=== PATIENT | female | born 1940 | race Caucasian/White ===

== ENCOUNTER 2025-02-25 14:35 | Emergency (ER) | payer OTHER, SELFPAY ==
--- OUTSIDE RECORDS SUMMARY | 2025-02-16 14:30 | XMS_ITS | Encounter Summary ---
Author Organization [facility] Address [address] [place] [address] Care Team Providers Care Assembler Faucets Name Role Phone Jose Roberto Torres MD Unavailable Rober Schmidt MD Primary Care Provider [phone] Reason for Visit * Imaging (Routine) - Closed Specialty Diagnoses / Procedures Referred By Contac t Referred To Contact Radiology Diagnoses Cigarette smoker Shortness of breath Screening for lung cancer Procedures CT lung screening low dose Rober Schmidt MD 112 [facility] [address] [place] [address] Phone: tel: fax: [facility] [address] [place] [address] Phone: tel: fax: Referral ID Status Reason Start Date Expiration Date Visits Re quested Visits Authorized [id number] Closed 02/11/2025 08/10/2025 1 1 Encounter Details Date Type Department Care Team ([facility] Contact Info) Description 02/16/2025 2:30 PM EDT Ancillary Procedure [facility] [address] [place] [address] Social History Tobacco Use Types Packs/Day Years Used Date Smoking Tobacco: Every Day Cigarettes Smokeless Tobacco: Never Alcohol Use Standard Drinks/Week Comments Not Currently 0 (1 standard drink = 0.6 oz pur e alcohol) PHQ-2 Answer Date Recorded Patient Health Questionnaire-2 Score 1 02/09/2025 Comments No Sex and Gender Information Value Date Recorded Sex Assigned at Not on file Legal Sex Female 7:26 PM EDT Gender Identity Not on file Sexual Orientation Not on file documented as of this encounter Plan of Treatment Not on file documented as of this encounter Procedures Procedure Name Priority Date/Time Associated Diagnosis Comments CT LUNG SCREENING LOW DOSE Routine 02/16/2025 2:46 PM EDT Cigarette smoker Shortness of breath Screening for lung cancer documented in this encounter Results * CT lung screening low dose (02/16/2025 2:46 PM EDT) Anatomical Region Laterality Modality Lung Computed Tomogra phy 02/16/2025 2:49 PM EDT Impressions 02/16/2025 2:58 PM EDT Lung Rads: LUNGRADS 1 - Negative Follow-up Recommendation: LDCT 1 Year Lung Rads categories: Category 0: Incomplete Additional Imaging Categories 1 & 2: Negative/Benign Continue annual screening Category 3: Probable benign 6 month f/u CT Chest wo Category 3s: Clinically significant or potentially clinically significant findings Category 4A/B Suspicious 4A: [address] Chest wo; PET/CT when > 8mm solid nodule component exists 4B: Chest w/ contrast; PET/CT and/or biopsy Category 5: Highly suspicious for Nodules with strong evidence of malignancy, requiring malignancy. immediate biopsy. Category 6: Incomplete Insufficient Information All CT scans at this facility use dose modulation, iterative reconstruction, and/or weight based dosing when appropriate to reduce radiation dose to as low as reasonably achievable. TRANSCRIBED BY: ELECTRONICALLY SIGNED BY: Freddie Harley MD Narrative 02/16/2025 2:[address]OW DOSE [address] IMAGING OF THE CHEST WITHOUT INTRAVENOUS CONTRAST MEDIUM. HISTORY: Tobacco use. TECHNICAL FACTORS: Without IV contrast axial helical 1.25mm slice thickness low dose images of the chest performed for lung cancer screening. FINDINGS: No suspicious lung nodule, mass, or parenchymal consolidation. Moderate sized sliding hiatal hernia. No significant hilar or mediastinal lymphadenopathy. No pleural or pericardial effusion. Procedure Note Freddie Harley MD - 02/16/[address] IMAGING OF THE CHEST WITHOUT INTRAVENOUS CONTRAST MEDIUM. HISTORY: Tobacco use. TECHNICAL FACTORS: Without IV contrast axial helical 1.25mm slice thickness low dose imagesof the chest performed for lung cancer screening. FINDINGS: No suspicious lung nodule, mass, or parenchymal consolidation. Moderatesized sliding hiatal hernia. No significant hilar or mediastinallymphadenopathy. No pleural or pericardial effusion. IMPRESSION: Lung Rads: LUNGRADS 1 - Negative Follow-up Recommendation: LDCT 1 Year Lung Rads categories: Category 0: Incomplete Additional Imaging Categories 1 & 2: Negative/Benign Continue annual screening Category 3: Probable benign 6 month f/u CT Chest wo Category 3s: Clinicallysignificant or potentially clinically significant findings Category 4A/B Suspicious 4A: [address] Chest wo;PET/CT when > 8mm solid nodulecomponent exists 4B: Chestw/ contrast; PET/CT and/or biopsy Category 5: Highly suspicious for Nodules with strong evidenceof malignancy, requiring malignancy. immediatebiopsy. Category 6: Incomplete Insufficient Information All CT scans at this facility use dose modulation, iterativereconstruction, and/or weight based dosing when appropriate to reduceradiation dose to as low as reasonably achievable. TRANSCRIBED BY: ELECTRONICALLY SIGNED BY: Freddie Harley MD us Rober Schmidt MD IMG CT PROCEDURES Final Resu lt documented in this encounter Visit Diagnoses Not on filedocumented in this encounter Care Teams Assembler Faucets Relationship Specialty Start Date End Date Jose Roberto Torres MD [address] [place] [address] PCP - Devoted 09/09/21 Rober Schmidt MD [address] [place] [address] PCP - General Family Medicine 10/27/24 documented as of this encounter
[2025-02-25] VITALS (46 sets, daily range): BP systolic 110–162; BP diastolic 45–85; PULSE 73–104; TEMP 36.4–36.9; O2SAT 57–100; BMI 30.9
--- NOTE | 2025-02-25 14:46 | ECG_ITS ---
[facility] Test Date: 2025-02-25 Pat Name: KATARINA SHORT Department: Room: - Gender: Female [employer]: : 1940 Requested By: [id number] Order Number: [id number] [place] MD: RYAN ARTHUR M.D. Measurements Intervals [place] Rate: 85 P: -53695 MT: 172 QRS: -50928 QRSD: 82 T: -60359 QT: 379 QTc: 379 Interpretive Statements Normal sinus rhythm Low voltage ECG Artifact Abnormal ECG No previous ECG available for comparison Electronically Signed On 02-25-2025 18:06:21 EDT by RYAN ARTHUR M.D.
--- NOTE | 2025-02-25 14:46 | XR_ITS ---
The [address] [address] Patient Name: KATARINA SHORT MRN: [id number] date: 1940 Sex: F Assigned Patient Location: ED.MAIN Current Patient Location: ED.MAIN Accession/Order Number: [id number] Exam Date: 02/25/2025 15:10 Report Date: 02/25/2025 15:12 At the request of: SAI PAEZ MD Procedure: XR chest 1V Plain film chest Single view HISTORY: Shortness of breath COMPARISON: 06/05/2021 FINDINGS: SUPPORT DEVICES: None POSTSURGICAL CHANGES: None HEART: Similar borderline cardiomegaly PULMONARY ALESIA: Similar hilar vascular prominence MEDIASTINUM: Unremarkable LUNGS AND PLEURA: No acute lung process, pleural effusion or pneumothorax identified. Minor interstitial changes BONY STRUCTURES: Chronic shoulder findings. ADDITIONAL FINDINGS None XR/XR chest 1V IMPRESSION: Similar mild CHF findings Impression dictated by: Alonso Negron M.D. 02/25/2025 3:12 PM Dictation Location: [place] [address] Electronically authenticated by: [id number] Y Date: 02/25/2025 15:12
--- OUTSIDE RECORDS SUMMARY | 2025-02-25 14:47 | XMS_ITS | Encounter Summary ---
Author Organization [facility] Address [address] [place] [address] Care Team Providers Care Smocker Name Role Phone Jose Roberto Torres MD Unavailable Rober Schmidt MD Primary Care Provider [phone] Encounter Details Date Type Department Care Team (Latest Contact Info) Description 02/16/2025 Travel Social History Tobacco Use Types Packs/Day Years [...] on file documented as of this encounter Visit Diagnoses Not on filedocumented in this encounter Care Teams Smocker Relationship Specialty Start Date End Date Jose Roberto Torres MD [address] [place] [address] PCP - Devoted 09/09/21 Rober Schmidt MD [address] [address] PCP - General Family Medicine 10/27/24 documented as of this encounter
--- OUTSIDE RECORDS SUMMARY | 2025-02-25 14:47 | XMS_ITS | Clinical Summary ---
Author Organization [facility] Address [address] [place] [address] Care Team Providers Care Dust Collector Attendant Name Role Phone Jose Roberto Torres MD Unavailable Rober Schmidt MD Primary Care Provider + [phone] Allergies Active Allergy Reactions Criticality Noted Date Comments Penicillin G Benzathine GI intolerance,Fever Medications Doxylamine Succinate, Sleep, (UNISOM PO) Take 1 tablet by mouth if needed (sleep aid) Active ibuprofen 200 MG tablet Take 600 mg by mouth 2 (two) times a day as needed for mild pain Active spironolactone (Aldactone) 50 MG tabletIndications: Venous insufficiency Take 1 tablet (50 mg) by mouth Daily 90 tablet 5 03/10/20 25 Active bumetanide (Bumex) 0.5 MG tabletIndications: Venous insufficiency,Ankl e edema, bilateral Take 1 tablet (0.5 mg) by mouth Daily 90 tablet 5 05/12/20 25 Active Active Problems Problem Noted Date Diagnosed Date Pulmonary fibrosis 02/11/2025 Venous insufficiency 02/11/2025 Simple chronic bronchitis 10/02/2024 Chronic insomnia 10/02/2024 Dermatochalasis of both upper eyelids 09/17/2024 Primary open angle glaucoma (POAG) of both eyes 09/17/2024 Pseudophakia 09/17/2024 Vitreous floaters 09/17/2024 Hx of hysterectomy 09/17/2024 Cigarette smoker 09/17/2024 Encounters Date Type Department Care Team Description 02/16/2025 2:30 PM EDT Ancillary Procedure [facility] [address] [place] [address] 02/16/2025 Travel 02/11/2025 Orders Only [facility] [address] [facility] [address] [place] [address] [facility] [place] Cigarette smoker; Shortness of breath; Screening for lung cancer 02/11/2025 Results Follow-Up [facility] [address] [address] Rober Schmidt MD Cigarette smoker; Shortness of breath; Venous insufficiency; Ankle edema, bilateral; Pulmonary fibrosis (HCC); Screening for lung cancer 02/09/2025 3:00 PM EDT Office Visit [facility] [address] [address] Rober Schmidt MD Shortness of breath (Primary Dx); Cigarette smoker; Simple chronic bronchitis (HCC); Pulmonary fibrosis (HCC) 02/09/2025 12:30 PM EDT Ancillary Procedure [facility] RADIOLOGY [address] [place] [address] Shortness of breath; Cigarette smoker 02/09/2025 Bamboo flowsheet [facility] [address] [place] [address] Rober Schmidt MD 02/09/2025 Travel 12/10/2024 Telephone [facility] [address] [address] [facility] [place] Care Coordination 12/02/2024 Telephone [facility] [address] [address] Rober Schmidt MD Results from Last 3 Months Immunizations Immunization Administration Dates Next Due Influenza, High-dose Seasona l, Quadrivalent, Preservative Free 06/26/2021 Influenza, recombinant, quad rivalent, injectable, preservative free 08/03/2022 Pfizer Tamayo Cap SARS-CoV-2 Vaccination Pfizer Purple Cap SARS-CoV-2 Vaccination 021,10/29/2020,10/03/2020 SARS-COV-2 (COVID-19) vaccin e, mRNA, spike protein, LNP, bivalent, preservative free, 30 mcg/0.3 mL dose, ranjeet-sucrose formulation 08/03/2022 Family History Relation Name Status Comments Father Mother Social History Tobacco Use Types Packs/Day Years Used Date Smoking Tobacco: Every Day Cigarettes Smokeless Tobacco: Never Tobacco Cessation:Ready to Q uit: No; Counseling Given: Yes Alcohol Use Standard Drinks/Week Comments Not Currently 0 (1 standard drink = 0.6 oz pur e alcohol) PHQ-2 Answer Date Recorded Patient Health Questionnaire-2 Score 1 02/09/2025 Comments No Sex and Gender Information Value Date Recorded Sex Assigned at Not on file Legal Sex Female 7:26 PM EDT Gender Identity Not on file Sexual Orientation Not on file Last Filed Vital Signs Vital Sign Reading Time Taken Comments Blood Pressure - - Pulse 106 02/09/2025 2:58 PM EDT Temperature - - Respiratory Rate - - Oxygen Saturation 93% 02/09/2025 2:58 PM EDT Inhaled Oxygen Concentration - - Weight 85.3 kg (188 lb) 02/09/2025 2:58 PM EDT Height 162.6 cm (5' 4 ) 02/09/2025 2:58 PM EDT Body Mass Index 32.27 02/09/2025 2:58 PM EDT Plan of Treatment Health Maintenance Due Date Last Done Comments Influenza Vaccine (Season Ended) 2025 08/03/2022, 06/26/2021 Medicare Annual Wellness (AWV) 09/21/2025 09/21/2024 Pneumococcal Vaccine: 65+ Years (1 of 2 - PCV) 09/21/2025 Postponed from 03/1959 (Patient Refused) Procedures Procedure Name Priority Date/Time Associated Diagnosis Comments CT LUNG SCREENING LOW DOSE Routine 02/16/2025 2:46 PM EDT Cigarette smoker Shortness of breath Screening for lung cancer XR CHEST 2 VIEWS Routine 02/09/2025 4:12 PM EDT Shortness of breath Cigarette smoker BASIC METABOLIC PANEL Routine 12/01/2024 1:18 PM EDT CKD stage 3a, GFR 45-59 ml/min ([facility]) from Last 3 Months Results * CT lung screening low dose [...] MD IMG CT PROCEDURES Final Resu lt * XR chest 2 views (02/09/2025 4:12 PM EDT) Anatomical Region Laterality Modality Chest Radiographic Denise ging 02/10/2025 2:09 PM EDT Narrative 02/10/2025 2:09 PM EDT EXAM: XR CHEST 2 VIEWS Clinical History: Shorness of breath for a few months Reference Exam: No comparison Findings: Atherosclerosis of the aortic arch. The cardiopericardial silhouette is normal in appearance. The pulmonary vessels are not cephalized. There is no alveolar edema, pneumonia, or pneumothorax. Prominent reticular interstitial lung markings in the perihilar lungs. Negative for pleural effusion. The skeleton is remarkable for multilevel degenerative changes. Background osteopenia Impression: 1. Vascular atherosclerosis. 2. Prominent reticular interstitial lung markings, nonspecific. Probable pulmonic fibrosis but interstitial pneumonitis not completely excluded. Dictated on: 02/10/2025 11:58 AM This report has been electronically signed and approved by the interpreting Radiologist. Procedure Note Tray Tafoya MD - 02/10/2025 EXAM: XR CHEST 2 VIEWS Clinical History: Shorness of breath for a few months Reference Exam: No comparison Findings: Atherosclerosis of the aortic arch. The cardiopericardial silhouette is normal in appearance. The pulmonaryvessels are not cephalized. There is no alveolar edema, pneumonia, orpneumothorax. Prominent reticular interstitial lung markings in theperihilar lungs. Negative for pleural effusion. The skeleton is remarkablefor multilevel degenerative changes. Background osteopenia Impression: 1. Vascular atherosclerosis. 2. Prominent reticular interstitial lung markings, nonspecific. Probablepulmonic fibrosis but interstitial pneumonitis not completely excluded. Dictated on: 02/10/2025 11:58 AM This report has been electronically signed and approved by theinterpreting Radiologist. Rober Schmidt MD IMG XR PROCEDURES Final Resu lt * (ABNORMAL) Basic metabolic panel (12/01/2024 1:18 PM EDT) Glucose 90 65 - 99 mg/dL [facility] Comment: Fasting reference interval BUN 19 7 - 25 mg/dL [facility] Creatinine 1.10(H) 0.60 - 0.95 mg/dL [facility] EGFR 50(L) > OR = 60 mL/min/1.7 3m2 [facility] BUN/CREATININE RATIO 17 6 - 22 (calc) [facility] Sodium 141 135 - 146 mmol/L [facility] Potassium, Bld 4.4 3.5 - 5.3 mmol/L [facility] Chloride 106 98 - 110 mmol/L [facility] Carbon Dioxide 24 20 - 32 mmol/L [facility] Calcium 9.2 8.6 - 10.4 mg/dL [facility] Blood Venous blood specimen / Unknown 12/01/2024 1:18 PM EDT 12/01/2024 1:18 PM EDT Narrative Resulting Agency Comment Performing Organization Information Site ID: [id number] Name: [facility] [employer] [facility] Address: [address] [place] [address], [address] [place] [id number] Director: Abdulkadir Franco MD Rober Schmidt MD LAB BLOOD ORDERABLES Final R esult [facility] from Last 3 Months Insurance [facility] Advance Directives Documents on File Type Date Recorded Patient Piping Supervisor Expl anation Power of Media Promoter 10/20/2024 9:53 AM 01-03 Power Of Media Promoter Advance Directives and Living Will 10/20/2024 9:50 AM 2006-12-14 Living Wi Care Teams Dust Collector Attendant Relationship Specialty Start Date End Date Jose Roberto Torres MD [address] [place] [address] PCP - Devoted 09/09/21 Rober Schmidt MD 112 [facility] [address] [place] [address] PCP - General Family Medicine 10/27/24
--- OUTSIDE RECORDS SUMMARY | 2025-02-25 14:47 | XMS_ITS | Encounter Summary ---
Author Organization [facility] Address [address] [place] [address] Care Team Providers Care Diet Assistant Name Role Phone Jose Roberto Torres MD Unavailable Rober Schmidt MD Primary Care Provider [phone] Encounter Details Date Type Department Care Team (Late st Contact Info) Description 02/11/2025 Orders Only [facility] [address] [place] [address] Claudia December, Cigarette smoker; Shortness of breath; Screening for lung cancer Social History Tobacco Use Types Packs/Day Years [...] BY: ELECTRONICALLY SIGNED BY: Freddie Harley MD Rober Schmidt MD IMG CT PROCEDURES Final Resu lt documented in this encounter Visit Diagnoses Diagnosis Cigarette smoker Tobacco use disorder Shortness of breath Screening for lung cancer documented in this encounter Care Teams Diet Assistant Relationship Specialty Start Date End Date Jose Roberto Torres MD [address] [place] [address] PCP - Devoted 09/09/21 Rober Schmidt MD 112 [facility] 100 [place] [address] PCP - General Family Medicine 10/27/24 documented as of this encounter
--- OUTSIDE RECORDS SUMMARY | 2025-02-25 14:47 | XMS_ITS | Encounter Summary ---
Author Organization [facility] Address [address] [place] [address] Care Team Providers Care Lastex Operator Name Role Phone Jose Roberto Torres MD Unavailable Rober Schmidt MD Primary Care Provider [phone] Reason for Referral * Imaging (Routine) - Closed Specialty Diagnoses / Procedures Referred By Contac t Referred To Contact Radiology Diagnoses Cigarette smoker Shortness of breath Screening for lung cancer Procedures CT lung screening low dose Rober Schmidt MD [address] [address] Phone: tel: fax: [facility] [address] [facility] [address] [place] [address] Phone: tel: fax: Referral ID Status Reason Start Date Expiration Date Visits Re quested Visits Authorized [id number] Closed 02/11/2025 08/10/2025 1 1 Encounter Details Date Type Department Care Team (Late st Contact Info) Description 02/11/2025 Results Follow-Up [facility] 100 112 [facility] [address] [place] [address] Rober Schmidt MD 112 [facility] [address] [place] [address] (Fax) Cigarette smoker; Shortness of breath; Venous insufficiency; Ankle edema, bilateral; Pulmonary fibrosis (HCC); Screening for lung cancer Social History Tobacco [...] on file documented as of this encounter Miscellaneous Notes * Telephone Encounter - Nancy Taylor MA - 02/11/2025 8:25 AM EDT Swapna was notified and verbalized understanding. She asked for the test to be sent and the medication as well. * Telephone Encounter - Nancy Taylor MA - 02/11/2025 8:18 AM EDT ----- Message from Rober Schmidt MD sent at 02/11/2025 7:41 AM EDT ----- * Telephone Encounter - Rober Schmidt MD - 02/11/2025 7:38 AM EDT Notify her that I have reviewed the x-ray report and the x-ray itself. I do agree with the radiologist there significant interstitial markings. This can be consistent with fibrosis of the lungs. There is no specific treatment for fibrosis other than supporting everything else. I would recommend Regular (not screening) No contrast CT scan lungs and a pulmonary function test for dyspnea and pulmonary fibrosis and smoking. Since this will take a couple of weeks in the meantime if she would like we could add a small dose of Bumex 0.5 mg in the morning along with her spironolactone to help her with the swelling documented in this encounter Plan of Treatment Scheduled Orders Name Type Priority Associated Diagnoses Orde r Schedule Pulmonary Function Test Imaging Routine Cigarette smoker Shortness of breath Pulmonary fibrosis (HCC) Ordered: 02/11/2025 documented as of this encounter Results * CT lung screening [...] smoker Tobacco use disorder Shortness of breath Venous insufficiency Unspecified venous (peripheral) insufficiency Ankle edema, bilateral Pulmonary fibrosis (HCC) Postinflammatory pulmonary fibrosis Screening for lung cancer documented in this encounter Care Teams Lastex Operator Relationship Specialty Start Date End Date Jose Roberto Torres MD [address] [place] [address] PCP - Devoted 09/09/21 Rober Schmidt MD [address] [address] PCP - General Family Medicine 10/27/24 documented as of this encounter
[2025-02-25 14:58] LABS: Basophils Absolute Auto 0.1 10^3/uL (0.0-0.1); Basophils Percent Auto 0.8 % (0.2-2.0); Eosinophils Absolute Auto 0.2 10^3/uL (0.0-0.7); Eosinophils Percent Auto 1.8 % (0.9-7.0); Immature Granulocytes Abs Auto 0.08 10^3/uL (0.00-0.03); Immature Granulocytes Pct Auto 0.9 % (0.0-0.5); Lymphocytes Absolute Auto 1.9 10^3/uL (1.2-3.8); Lymphocytes Percent Auto 20.6 % (20.5-60.0); Mean Corpuscular HGB Conc 27.4 g/dL (29.9-35.2); Mean Corpuscular Hemoglobin 18.9 pg (26.7-34.0); Mean Corpuscular Volume 68.9 fL (81.0-99.0); Mean Platelet Volume 9.9 fL (9.5-13.5); Monocytes Absolute Auto 0.6 10^3/uL (0.3-0.8); Monocytes Percent Auto 6.9 % (1.7-12.0); Neutrophils Absolute Auto 6.4 10^3/uL (1.4-6.5); Platelet Count 312 10^3/uL (150-450); Red Blood Count 3.02 10^6/uL (4.20-5.40); White Blood Count 9.3 10^3/uL (4.0-11.0)
[2025-02-25 15:08] LABS: Hematocrit 20.8 % (36.0-48.0); Hemoglobin 5.7 g/dL (12.0-16.0)
[2025-02-25 15:14] LABS: INR 1.11; Prothrombin Time 11.6 sec (9.0-11.6)
[2025-02-25 15:16] LABS: Anion Gap 16.5
--- NOTE | 2025-02-25 15:17 | ED.SOB1 ---
HPI - SOB/Dyspnea General Chief Complaint: Shortness of Breath/Dyspnea Stated Complaint: SOB Time Seen by Provider: 02/25/25 14:46 Source: patient Mode of arrival: ambulance History of Present Illness HPI Narrative: The patient have a history of chronic bilateral leg edema as well as stage III kidney disease she recently was getting workup for possible lung fibrosis and she was started on inhalers. Patient admits of history of smoking but she does not have any history of COPD. The patient upon arrival was complaining of shortness of breath that got worse over the last 2 to 3 days although she have a baseline shortness of breath as well her bilateral leg edema did not get worse The patient denies any chest pain nausea vomiting or fever she also mentioned that she sometimes feels dizzy and short of breath on exertion The patient have no history of coronary artery disease and she had colonoscopy done more than 5 years ago when she had no acute pathology detected The patient has never been diagnosed any congestive heart failure although she was told that she was managed for A-fib before but she does not take any anticoagulant, the patient then had cardioversion as a treatment according to her history Related Data Home Medications ?Medication ?Instructions ?Recorded ?Confirmed bumetanide 0.5 mg tablet 1 mg PO DAILY 02/25/25 02/25/25 spironolactone 50 mg tablet 50 mg PO DAILY 02/25/25 02/25/25 Allergies Allergy/AdvReac Type Severity Reaction Status Date / Time Penicillins Allergy Severe sick Verified 02/25/25 14:44 Review of Systems ROS Status of ROS 10 or more systems reviewed and unremarkable except as noted in history and below Exam Narrative Exam Narrative: Nurses notes and vital signs reviewed and patient is not hypoxic. General: Pale looking and sick with no acute distress Skin: Warm, dry, no pallor noted. No rash. Head: Normocephalic, atraumatic. Neck: Supple, non-tender. Cardiovascular: Regular Rate and Rhythm without murmur, gallop or rub. Respiratory: Decreased air entry bilaterally with distant breathing sounds Back: No midline thoracic or lumbar vertebral tenderness. No CVA tenderness Musculoskeletal: Bilateral 2+ at least pitting edema until the level of the knee with no redness hotness or any signs of infection GI: Abdomen is soft, non-distended. Normal bowel sounds. No masses appreciated. No tenderness to palpation. No rebound, guarding, or rigidity noted. Neurological: A&O x4. No cranial nerve dysfunction observed. Constitutional Vital Signs, click to edit/add: Last Vital Signs Temp 97.8 F 02/25/25 18:11 Pulse 88 02/25/25 18:11 Resp 17 02/25/25 18:11 BP 123/45 L 02/25/25 18:19 Pulse Ox 93 L 02/25/25 18:11 O2 Del Method CPAP 02/25/25 15:30 FiO2 70 02/25/25 15:30 Course Vital Signs Vital signs: Vital Signs Temperature 97.5 F L 02/25/25 14:36 Pulse Rate 100 H 02/25/25 14:36 Respiratory Rate 22 H 02/25/25 14:36 Blood Pressure 110/58 02/25/25 14:36 Pulse Oximetry 84 L 02/25/25 14:36 Oxygen Delivery Method Room Air 02/25/25 14:36 Temperature 97.8 F 02/25/25 18:11 Pulse Rate 88 02/25/25 18:11 Respiratory Rate 17 02/25/25 18:11 Blood Pressure 123/45 L 02/25/25 18:19 Pulse Oximetry 93 L 02/25/25 18:11 Oxygen Delivery Method CPAP 02/25/25 15:30 Fraction of Inspired Oxygen 70 02/25/25 15:30 MDM - SOB/Dyspnea MDM Narrative Medical decision making narrative: Upon arrival the patient was found to be hypoxemic initially although she was not tachypneic but her pulse ox was 90 taking easily and she was placed on CPAP due to the fact that she was sick looking After placing the patient on CPAP obtain ABGs that showed that the patient is not hypoxemic and by the time her hand became warm the pulse ox started detecting above 94% easily The patient chest x-ray shows mild congestion The patient CBC shows hemoglobin of 5.7 that was repeated twice to show with the same result With a low MCV and RDW that mostly correlate with possible iron deficiency anemia-----the patient never had a history of any blood transfusion although she is not sure if she ever had anemia before and her last workup was done 1 month ago by her primary care The patient also had a colonoscopy done more than 5 years ago that was within normal according to her history The patient chemistry showing a GFR of 33 and the other than this some mild elevation lactic acid with the patient picture of possible severe anemia she will be provided with the packed RBC the goal to give her 2 units of blood and she will be given 20 units IV of Lasix with each unit The patient case was discussed with Dr. Shipman in and she added some blood test regarding iron deficiency including ferritin TIBC and iron And the the patient case was discussed with Dr. Medley in [facility] and the patient was accepted Patient right now saturating 94% on 2 L nasal cannula and she will be getting the first unit of blood with the plan to give her Lasix 40 mg IV with the unit and with the second unit as well she will get another 20 mg IV Lasix EKG showed multiple artifact showing sinus rhythm with a heart rate of almost [address] elevation or depression Lab Data Labs: Lab Results 02/25/25 02/25/25 02/25/25 Range/Units 14:47 15:15 15:40 WBC 9.3 (4.0-11.0) 10^3/uL RBC 3.02 L (4.20-5.40) 10^6/uL Hgb 5.7 L* (12.0-16.0) g/dL Hct 20.8 L* (36.0-48.0) % MCV 68.9 L (81.0-99.0) fL MCH 18.9 L (26.7-34.0) pg MCHC 27.4 L (29.9-35.2) g/dL RDW 19.1 H (11.0-15.0) % Plt Count 312 (150-450) 10^3/uL MPV 9.9 (9.5-13.5) fL Neut % (Auto) 69.0 (43.0-75.0) % Lymph % (Auto) 20.6 (20.5-60.0) % [place] % (Auto) 6.9 (1.7-12.0) % Eos % (Auto) 1.8 (0.9-7.0) % Baso % (Auto) 0.8 (0.2-2.0) % Neut # (Auto) 6.4 (1.4-6.5) 10^3/uL Lymph # (Auto) 1.9 (1.2-3.8) 10^3/uL [place] # (Auto) 0.6 (0.3-0.8) 10^3/uL Eos # (Auto) 0.2 (0.0-0.7) 10^3/uL Baso # (Auto) 0.1 (0.0-0.1) 10^3/uL Abs Immat Gran (auto) 0.08 H (0.00-0.03) 10^3/uL Seg Neuts % (Manual) (43.0-75.0) Lymphocytes % (Manual) (20.5-60.0) % Monocytes % (Manual) (1.7-12.0) % Eosinophils % (Manual) (0.9-7.0) % Basophils % (Manual) (0.2-2.0) % Imm/Tot Granulo (auto) 0.9 H (0.0-0.5) % Neutrophils # (Manual) (1.4-6.5) 10^3/uL Lymphocytes # (Manual) (1.20-3.80) 10^3/uL Monocytes # (Manual) (0.30-0.80) 10^3/uL Eosinophils # (Manual) (0.00-0.70) 10^3/uL Basophils # (Manual) (0.00-0.10) 10^3/uL PT 11.6 (9.0-11.6) sec INR 1.11 Puncture Site ABG pH (7.350-7.450) ABG pCO2 (35.0-45.0) mmHg ABG pO2 (80.0-100.0) mmHg ABG HCO3 (22.0-26.0) mmol/L ABG O2 Saturation % ABG Base Excess (-2.0-2.0) mmol/L Gabriel Test (POSITIVE) FiO2 % Sodium 142 (136-145) mmol/L Potassium 4.3 (3.5-5.1) mmol/L Chloride 104 (98-107) mmol/L Carbon Dioxide 25.8 (21.0-32.0) mmol/L Anion Gap 16.5 BUN 29.0 H (7.0-18.0) mg/dL Creatinine 1.52 H (0.55-1.02) mg/dL Est GFR ( Amer) 39 L (>=60 mL/min/1.73m^2) Est GFR (Non-Af Amer) 33 L (>=60 mL/min/1.73m^2) BUN/Creatinine Ratio 19.1 Glucose 107 H (74-106) mg/dL Lactate 2.1 H* (0.4-2.0) mmol/L Calcium 9.5 (8.5-10.1) mg/dL Total Bilirubin 0.4 (0.2-1.0) mg/dL AST 22 (15-37) U/L ALT 12 L (14-59) U/L Alkaline Phosphatase 119 H (46-116) U/L Troponin I High Sens 112.3 H* (4.0-51.3) pg/mL NT-Pro-B Natriuret Pep 43132.0 H* (<=1800.0) pg/mL Total Protein 6.9 (6.4-8.2) g/dL Albumin 3.2 L (3.4-5.0) g/dL Globulin 3.7 g/dL Albumin/Globulin Ratio 0.9 Stool Occult Blood Negative Blood Type A Positive Antibody Screen Negative Crossmatch See Detail 02/25/25 02/25/25 02/25/25 Range/Units 16:00 16:30 16:55 WBC 10.0 (4.0-11.0) 10^3/uL RBC 3.05 L (4.20-5.40) 10^6/uL Hgb 5.7 L* (12.0-16.0) g/dL Hct 21.2 L* (36.0-48.0) % MCV 69.5 L (81.0-99.0) fL MCH 18.7 L (26.7-34.0) pg MCHC 26.9 L (29.9-35.2) g/dL RDW 19.1 H (11.0-15.0) % Plt Count 308 (150-450) 10^3/uL MPV 9.6 (9.5-13.5) fL Neut % (Auto) Not Reportable (43.0-75.0) % Lymph % (Auto) Not Reportable (20.5-60.0) % [place] % (Auto) Not Reportable (1.7-12.0) % Eos % (Auto) Not Reportable (0.9-7.0) % Baso % (Auto) Not Reportable (0.2-2.0) % Neut # (Auto) Not Reportable (1.4-6.5) 10^3/uL Lymph # (Auto) Not Reportable (1.2-3.8) 10^3/uL [place] # (Auto) Not Reportable (0.3-0.8) 10^3/uL Eos # (Auto) Not Reportable (0.0-0.7) 10^3/uL Baso # (Auto) Not Reportable (0.0-0.1) 10^3/uL Abs Immat Gran (auto) Not Reportable (0.00-0.03) 10^3/uL Seg Neuts % (Manual) 94.0 H (43.0-75.0) Lymphocytes % (Manual) 6.0 L (20.5-60.0) % Monocytes % (Manual) 0.0 L (1.7-12.0) % Eosinophils % (Manual) 0.0 L (0.9-7.0) % Basophils % (Manual) 0.0 L (0.2-2.0) % Imm/Tot Granulo (auto) Not Reportable (0.0-0.5) % Neutrophils # (Manual) 9.40 H (1.4-6.5) 10^3/uL Lymphocytes # (Manual) 0.60 L (1.20-3.80) 10^3/uL Monocytes # (Manual) 0.00 L (0.30-0.80) 10^3/uL Eosinophils # (Manual) 0.00 (0.00-0.70) 10^3/uL Basophils # (Manual) 0.00 (0.00-0.10) 10^3/uL PT (9.0-11.6) sec INR Puncture Site R rad Lb ABG pH 7.363 7.456 H (7.350-7.450) ABG pCO2 49.3 H 34.8 L (35.0-45.0) mmHg ABG pO2 <30.1 L* 255.0 H (80.0-100.0) mmHg ABG HCO3 28.1 H 24.5 (22.0-26.0) mmol/L ABG O2 Saturation 22.5 >100.0 % ABG Base Excess 2.7 H 0.6 (-2.0-2.0) mmol/L Gabriel Test Positive Positive (POSITIVE) FiO2 70 % Sodium (136-145) mmol/L Potassium (3.5-5.1) mmol/L Chloride (98-107) mmol/L Carbon Dioxide (21.0-32.0) mmol/L Anion Gap BUN (7.0-18.0) mg/dL Creatinine (0.55-1.02) mg/dL Est GFR ( Amer) (>=60 mL/min/1.73m^2) Est GFR (Non-Af Amer) (>=60 mL/min/1.73m^2) BUN/Creatinine Ratio Glucose (74-106) mg/dL Lactate 1.4 (0.4-2.0) mmol/L Calcium (8.5-10.1) mg/dL Total Bilirubin (0.2-1.0) mg/dL AST (15-37) U/L ALT (14-59) U/L Alkaline Phosphatase (46-116) U/L Troponin I High Sens (4.0-51.3) pg/mL NT-Pro-B Natriuret Pep (<=1800.0) pg/mL Total Protein (6.4-8.2) g/dL Albumin (3.4-5.0) g/dL Globulin g/dL Albumin/Globulin Ratio Stool Occult Blood Blood Type Antibody Screen Crossmatch Discharge Plan Discharge Chief Complaint: Shortness of Breath/Dyspnea Clinical Impression: Severe anemia, CKD (chronic kidney disease), stage III, CHF (congestive heart failure) Patient Disposition: [facility] Time of Disposition Decision: 18:30 Discharge location: [facility] under Dr. Medley
[2025-02-25 15:19] LABS: Alanine Aminotransferase 12 U/L (14-59); Albumin Globulin Ratio 0.9; Albumin Level 3.2 g/dL (3.4-5.0); Alkaline Phosphatase 119 U/L (46-116); Aspartate Amino Transferase 22 U/L (15-37); BUN Creatinine Ratio 19.1; Bilirubin Total 0.4 mg/dL (0.2-1.0); Calcium 9.5 mg/dL (8.5-10.1); Carbon Dioxide 25.8 mmol/L (21.0-32.0); Chloride 104 mmol/L (98-107); Estimated GFR (African America 39 (>=60 mL/min/1.73m^2); Estimated GFR (Non-African Ame 33 (>=60 mL/min/1.73m^2); Globulin 3.7 g/dL; Glucose 107 mg/dL (74-106); Potassium 4.3 mmol/L (3.5-5.1); Sodium 142 mmol/L (136-145); Total Protein 6.9 g/dL (6.4-8.2)
[2025-02-25 15:21] LABS: Red Cell Distribution Width 19.1 % (11.0-15.0)
[2025-02-25 15:26] LABS: Troponin I High Sensitivity 112.3 pg/mL (4.0-51.3)
[2025-02-25 15:27] LABS: Lactate/Lactic Acid 2.1 mmol/L (0.4-2.0)
[2025-02-25 15:59] LABS: Internal Control Within Normal Limits; Occult Blood Negative
[2025-02-25 16:08] LABS: ABG PCO2 49.3 mmHg (35.0-45.0); Allen Test POSITIVE (POSITIVE); Base Excess ABG 2.7 mmol/L (-2.0-2.0); HCO3 ABG 28.1 mmol/L (22.0-26.0); Oxygen Saturation ABG 22.5 %; pH ABG 7.363 (7.350-7.450)
[2025-02-25 16:09] LABS: Fractionated Inspired Oxygen 70 %; O2 Mode CPAP +10; Puncture Site R RAD
[2025-02-25 16:11] LABS: PO2 ABG <30.1 mmHg (80.0-100.0)
[2025-02-25 16:40] LABS: Mean Corpuscular HGB Conc 26.9 g/dL (29.9-35.2); Mean Corpuscular Hemoglobin 18.7 pg (26.7-34.0); Mean Corpuscular Volume 69.5 fL (81.0-99.0); Mean Platelet Volume 9.6 fL (9.5-13.5); Platelet Count 308 10^3/uL (150-450); Red Blood Count 3.05 10^6/uL (4.20-5.40); Red Cell Distribution Width 19.1 % (11.0-15.0)
[2025-02-25 16:43] LABS: Hematocrit 21.2 % (36.0-48.0); Hemoglobin 5.7 g/dL (12.0-16.0)
[2025-02-25 17:01] LABS: ABG PCO2 34.8 mmHg (35.0-45.0); Base Excess ABG 0.6 mmol/L (-2.0-2.0); HCO3 ABG 24.5 mmol/L (22.0-26.0); pH ABG 7.456 (7.350-7.450)
[2025-02-25 17:02] LABS: Allen Test POSITIVE (POSITIVE); Oxygen Saturation ABG >100.0 %
[2025-02-25 17:03] LABS: O2 Mode CPAP +10; Puncture Site LB
[2025-02-25 17:08] LABS: Lactate/Lactic Acid 1.4 mmol/L (0.4-2.0)
[2025-02-25] MEDS: FUROSEMIDE 20 MG/2 ML VIAL IVP (18:19)
--- NOTE | 2025-02-25 18:33 | ECG_ITS ---
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 Measurements Intervals [place] Rate: 85 P: -53849 CT: 150 QRS: -38246 QRSD: 75 T: -37415 QT: -95988 QTc: -86704 Interpretive Statements Normal sinus rhythm Low voltage ECG Compared to ECG 02/25/2025 14:38:58 No significant change Electronically Signed On 02-26-2025 19:26:23 EDT by RYAN ARTHUR M.D.
[2025-02-25 18:43] LABS: Percent Iron Saturation 1.7 %
== END 2025-02-25 21:08 | disposition short-term general hospital (02) ==
PROVIDERS: Emergency Provider Emergency Medicine; PCP Family Medicine
DX: I50.9 Heart failure, unspecified (principal); D64.9 Anemia, unspecified; R06.02 Shortness of breath; N18.30 Chronic kidney disease, stage 3 unspecified; Z87.891 Personal history of nicotine dependence; R60.0 Localized edema
CPT/HCPCS: 36415; 36430; 36600; 51702; 71045; 80053; 82728; 82805; 83540; 83550; 83605; 83880; 84484; 85007; 85025; 85027; 85610; 86850; 86900; 86901; 86923; 87040; 93005; 94660; 96374; 99285; G0328; J1938; P9016

== ENCOUNTER 2025-04-28 07:37 | Outpatient (RCR) | payer OTHER, SELFPAY ==
[2025-04-28 10:30] VITALS: BP 116/59; PULSE 98; TEMP 36.2; O2SAT 93
[2025-04-28] MEDS: DIPHENHYDRAMINE HCL 50 MG/ML VIAL 25 MG IV (10:42)
[2025-04-28] MEDS: DEXAMETHASONE SOD PHOS 4 MG/ML VIAL IV (10:42)
[2025-04-28] MEDS: 0.9 % SODIUM CHLORIDE 250 ML 20 ML IV (11:00)
[2025-04-28] MEDS: IRON DEXTRAN COMPLEX 100 MG/2 ML VIAL 25 MG IV (11:00)
[2025-04-28 11:06] LABS: Hemoglobin 6.4 g/dL (12.0-16.0)
--- NOTE | 2025-04-28 11:22 | PC.NURSE ---
1042: Pre-meds initiated at this time. Pt relays comfort. Denies c/o dyspnea or pain. Drinking water. Pillow and blanket provided.
--- NOTE | 2025-04-28 11:31 | PC.NURSE ---
1107: Lab phoned with critical Hgb 6.[address] Schmidt called and notified. Instructs to infuse Iron as ordered and will re-check labs at later date.
--- NOTE | 2025-04-28 11:43 | PC.NURSE ---
1100: Medicated with Infed 25mg ivp for test dose as ordered.
[2025-04-28] MEDS: IRON DEXTRAN COMPLEX 975 MG in 0.9 % SODIUM CHLORIDE 250 ML 269.5 MG IV (12:09)
--- NOTE | 2025-04-28 12:33 | PC.NURSE ---
1209: Tolerated test dose of Infed. IV infusion initiated at this time. 1233: Tolerating infusion without c/o. Denies needs.
== END 2025-05-09 23:59 | disposition home or self-care (01) ==
LOC: INF 07:37
PROVIDERS: PCP Family Medicine; Visit Provider Family Medicine
DX: D50.0 Iron deficiency anemia secondary to blood loss (chronic) (principal); Z79.01 Long term (current) use of anticoagulants; N18.4 Chronic kidney disease, stage 4 (severe); K55.20 Angiodysplasia of colon without hemorrhage; K25.9 Gastric ulcer, unspecified as acute or chronic, without hemorrhage or perforation
CPT/HCPCS: 36415; 85018; 96365; 96375; 96376; J1100; J1200; J1750

== ENCOUNTER 2025-05-17 10:46 | Outpatient (RCR) | payer OTHER, SELFPAY ==
[2025-05-17 10:50] VITALS: BP 155/62; PULSE 94; TEMP 36.3; O2SAT 92
[2025-05-17] MEDS: DEXAMETHASONE SOD PHOS 4 MG/ML VIAL IV (11:14)
[2025-05-17] MEDS: SODIUM CHLORIDE 0.9% IV (11:14)
[2025-05-17] MEDS: ACETAMINOPHEN 325 MG TABLET 650 MG PO (11:14)
[2025-05-17] MEDS: DIPHENHYDRAMINE HCL 50 MG/ML VIAL 25 MG IVP (11:14)
[2025-05-17] MEDS: IRON DEXTRAN COMPLEX IV (11:14)
== END 2025-06-08 23:59 | disposition home or self-care (01) ==
LOC: INF 10:46
PROVIDERS: PCP Family Medicine; Visit Provider Family Medicine
DX: D50.0 Iron deficiency anemia secondary to blood loss (chronic) (principal); N18.4 Chronic kidney disease, stage 4 (severe); Z79.01 Long term (current) use of anticoagulants; K25.3 Acute gastric ulcer without hemorrhage or perforation
CPT/HCPCS: 96365; 96375; J1100; J1200; J1750